=== PATIENT | male | born 1970 | race Caucasian/White ===

== ENCOUNTER 2017-07-23 11:44 | Outpatient (CLI) | payer OTHER ==
[2017-07-23 12:14] LABS: MEAN CORPUSCULAR HEMOGLOBIN 31.4 pg (28.0-34.0); MEAN CORPUSCULAR VOLUME 91.8 fl (80.0-100.0)
[2017-07-23 12:20] LABS: eGFR (African) > 60; eGFR (Non-African) > 60
[2017-07-23 12:54] LABS: SEGMENTED NEUTROPHILS % 68 % (39-79)
[2017-07-23 12:55] LABS: BASOPHILS % 2 % (0-2); EOSINOPHILS % 5 % (0-7); MONOCYTES % 6 % (0-11)
== END 2017-07-23 11:45 ==
LOC: LAB 11:44
PROVIDERS: ATTEND General Practice
DX: L30.9 Dermatitis, unspecified (principal)
CPT/HCPCS: 80053; 85025